=== PATIENT | male | born 1955 | race Caucasian/White ===

== ENCOUNTER 2016-04-23 09:09 | Day surgery (SDC) | payer BC ==
[~2016-04-23] VITALS: Ht 185.4 cm; Wt 101.3 kg
[2016-04-23] MEDS ORDERED: JANUVIA 100MG100 MG PO (09:36)
[2016-04-23] MEDS ORDERED: GLUCOPHAGE850 MG/TAB PO (09:36)
[2016-04-23] MEDS ORDERED: COZAAR 50MG50 MG/TAB PO (09:37)
[2016-04-23] MEDS ORDERED: LIPITOR20 MG PO (09:37)
[2016-04-23] MEDS ORDERED: JARDIANCE10 PO (09:37)
[2016-04-23] MEDS ORDERED: ZYLOPRIM 300MG300 MG PO (09:38)
[2016-04-23] MEDS ORDERED: MULTI VITAMINS1 TAB PO (09:38)
[2016-04-23 09:55] VITALS: BP 131/77; PULSE 80; TEMP 98.3
[2016-04-23 11:00] VITALS: BP 106/87; PULSE 78; TEMP 97.9
[2016-04-23 11:15] VITALS: BP 96/81; PULSE 84
[2016-04-23 11:30] VITALS: BP 110/73; PULSE 72
[2016-04-23 13:03] VITALS: BP 103/70; PULSE 72
== END 2016-04-23 11:55 | disposition home or self-care (01) ==
LOC: SDCO 09:09
DX: Z12.11 Encounter for screening for malignant neoplasm of colon (principal); D12.0 Benign neoplasm of cecum; K62.1 Rectal polyp; K57.30 Diverticulosis of large intestine without perforation or abscess without bleeding; E11.9 Type 2 diabetes mellitus without complications; E78.00 Pure hypercholesterolemia, unspecified
CPT/HCPCS: J2250; J3010; J7030

== ENCOUNTER → 2021-06-12 | Outpatient (CLI) | payer MEDICARE, OTHER ==
[~2021-06-12] MED LIST: COZAAR 50MG50 MG/TAB PO; GLUCOPHAGE850 MG/TAB PO; JANUVIA 100MG100 MG PO; JARDIANCE10 PO; LIPITOR20 MG PO; MULTI VITAMINS1 TAB PO; ZYLOPRIM 300MG300 MG PO
== END ==
LOC: COL.RAD 08:15
DX: Z13.6 Encounter for screening for cardiovascular disorders (principal)